=== PATIENT | male | born 1995 | race Caucasian/White ===

== ENCOUNTER 2021-08-26 03:19 | Emergency (ER) | payer OTHER ==
[~2021-08-26] VITALS: Ht 167.6 cm; Wt 134.5 kg
[2021-08-26 04:01] VITALS: BP 98/55
[2021-08-26] MEDS ORDERED: VISCOUS LIDOCAINE 2% 15 ML UDC PO STA (04:14)
[2021-08-26] MEDS ORDERED: DICYCLOMINE 10 MG/5 ML ORAL SYR PO STA (04:14)
[2021-08-26] MEDS ORDERED: MAGNESIUM/ALUMINUM HYDROXIDE/SIMETHICONE 30ML UDC PO STA (04:14)
[2021-08-26] MEDS ORDERED: ONDANSETRON 4MG ODT PO STA (04:14)
[2021-08-26 05:27] LABS: BASOPHILS % 0.4 % (0.0-2.0); EOSINOPHILS % 0.7 % (0.0-5.0); HEMATOCRIT. 43.5 % (42.0-52.0); HEMOGLOBIN. 14.6 g/dL (14.0-18.0); LYMPHOCYTES % 12.3 % (20.0-50.0); MEAN CORPUSCULAR HEMOGLOBIN 30.2 pg (28.0-32.0); MEAN CORPUSCULAR VOLUME 89.9 fL (80.0-94.0); MEAN PLATELET VOLUME 7.4 fl (7.4-10.4); MONOCYTES % 8.9 % (2.0-8.0); NEUTROPHILS % 77.7 % (40.0-76.0); PLATELET 281 x1000/uL (130-400); RED BLOOD CELL COUNT 4.83 mill/uL (4.7-6.1); RED CELL DISTRIBUTION WIDTH 13.1 % (11.6-14.6)
[2021-08-26 05:33] LABS: CHLORIDE 108 mEq/L (98-107)
[2021-08-26] MEDS ORDERED: DICYCLOMINE HCL 10MG CAPSULE PO NR (05:45)
[2021-08-26] MEDS ORDERED: OMEP40CA20 MT (06:58)
== END 2021-08-26 07:13 | disposition home or self-care (01) ==
LOC: ER 03:19
DX: K80.20 Calculus of gallbladder without cholecystitis without obstruction (principal); R74.01 Elevation of levels of liver transaminase levels
CPT/HCPCS: 36415; 76705; 80053; 85025; 99284

== ENCOUNTER 2022-07-27 06:05 | Emergency (ER) | payer OTHER ==
[~2022-07-27] VITALS: Ht 180.3 cm; Wt 143.0 kg
[~2022-07-27 06:05] MED LIST: OMEP40CA20 MT
[2022-07-27 06:15] VITALS: BP 140/89
[2022-07-27] MEDS ORDERED: KETOROLAC 30MG/ML VIAL IV STA (07:05)
[2022-07-27] MEDS ORDERED: ONDANSETRON HCL 4MG/2ML INJ IV STA (07:05)
[2022-07-27] MEDS ORDERED: SODIUM CHLORIDE 0.9% 1,000 ML IV ONE (07:15)
[2022-07-27] MEDS ORDERED: KETOROLAC 30MG/ML VIAL IV ONE (07:15)
[2022-07-27 08:34] LABS: BASOPHILS % 0.6 % (0.0-2.0); EOSINOPHILS % 0.7 % (0.0-5.0); HEMATOCRIT. 46.9 % (42.0-52.0); LYMPHOCYTES % 16.2 % (20.0-50.0); MEAN CORPUSCULAR HEMOGLOBIN 30.5 pg (28.0-32.0); MEAN CORPUSCULAR VOLUME 89.3 fL (80.0-94.0); MEAN PLATELET VOLUME 7.5 fl (7.4-10.4); NEUTROPHILS % 76.5 % (40.0-76.0); PLATELET 303 x1000/uL (130-400); RED BLOOD CELL COUNT 5.25 mill/uL (4.7-6.1); RED CELL DISTRIBUTION WIDTH 13.8 % (11.6-14.6)
[2022-07-27 08:41] LABS: CLARITY URINE CLEAR (CLEAR); COLOR URINE YELLOW (YELLOW); KETONES URINE NEGATIVE (NEGATIVE); LEUKOCYTE ESTERASE URINE NEGATIVE (NEGATIVE); NITRITE URINE NEGATIVE (NEGATIVE); OCCULT BLOOD URINE NEGATIVE (NEGATIVE); PROTEIN URINE NEGATIVE (NEGATIVE); SPECIFIC GRAVITY URINE 1.024 (1.005-1.030); UROBILINOGEN URINE 0.2 E.U./dL (0.2-1.0)
[2022-07-27 08:44] LABS: PROTHROMBIN TIME 10.6 sec (9.6-11.0)
[2022-07-27 08:48] LABS: CHLORIDE 106 mEq/L (98-107)
[2022-07-27] MEDS ORDERED: TOPUD PO (09:20)
== END 2022-07-27 09:46 | disposition home or self-care (01) ==
LOC: ER 06:05
DX: K80.20 Calculus of gallbladder without cholecystitis without obstruction (principal); K76.0 Fatty (change of) liver, not elsewhere classified
CPT/HCPCS: 36415; 76705; 80053; 81003; 83690; 85025; 85610; 96374; 99284; J1885; J7030

== ENCOUNTER 2022-08-24 20:02 | Emergency (ER) | payer OTHER ==
[~2022-08-24] VITALS: Ht 180.3 cm; Wt 137.8 kg
[~2022-08-24 20:02] MED LIST changes: +TOPUD PO
[2022-08-24 20:52] LABS: BASOPHILS % 0.3 % (0.0-2.0); EOSINOPHILS % 1.7 % (0.0-5.0); HEMOGLOBIN. 14.5 g/dL (14.0-18.0); LYMPHOCYTES % 19.2 % (20.0-50.0); MEAN CORPUSCULAR HEMOGLOBIN 30.4 pg (28.0-32.0); MEAN CORPUSCULAR VOLUME 90.1 fL (80.0-94.0); MONOCYTES % 7.2 % (2.0-8.0); NEUTROPHILS % 71.6 % (40.0-76.0); PLATELET 280 x1000/uL (130-400); RED BLOOD CELL COUNT 4.77 mill/uL (4.7-6.1); RED CELL DISTRIBUTION WIDTH 13.8 % (11.6-14.6)
[2022-08-24 21:04] LABS: CHLORIDE 103 mEq/L (98-107)
[2022-08-24] MEDS ORDERED: MAGNESIUM/ALUMINUM HYDROXIDE/SIMETHICONE 30ML UDC PO STA (21:06)
[2022-08-24] MEDS ORDERED: VISCOUS LIDOCAINE 2% 15 ML UDC PO STA (21:06)
[2022-08-24] MEDS ORDERED: ONDANSETRON HCL 4MG/2ML INJ IV STA (21:06)
[2022-08-24] MEDS ORDERED: KETOROLAC 30MG/ML VIAL IV STA (21:06)
[2022-08-24] MEDS ORDERED: FAMOTIDINE 20MG/2ML VIAL IV STA (21:06)
[2022-08-24] MEDS ORDERED: SODIUM CHLORIDE 0.9% 1,000 ML IV ONE (21:15)
[2022-08-24 21:31] LABS: CLARITY URINE CLEAR (CLEAR); COLOR URINE YELLOW (YELLOW); KETONES URINE TRACE (NEGATIVE); LEUKOCYTE ESTERASE URINE NEGATIVE (NEGATIVE); NITRITE URINE NEGATIVE (NEGATIVE); OCCULT BLOOD URINE NEGATIVE (NEGATIVE); PROTEIN URINE NEGATIVE (NEGATIVE); SPECIFIC GRAVITY URINE 1.036 (1.005-1.030)
[2022-08-24 21:33] VITALS: BP 118/74
== END 2022-08-24 23:29 | disposition home or self-care (01) ==
LOC: ER 20:02
DX: K80.50 Calculus of bile duct without cholangitis or cholecystitis without obstruction (principal)
CPT/HCPCS: 36415; 76705; 80053; 81003; 83690; 85025; 96361; 96374; 96375; 99285; J1885; J2405; J3490; J7030; Z7610

== ENCOUNTER 2022-09-09 19:23 | Emergency (ER) | payer OTHER ==
[~2022-09-09] VITALS: Ht 180.3 cm; Wt 132.5 kg
[2022-09-09 19:51] LABS: CLARITY URINE CLEAR (CLEAR); COLOR URINE YELLOW (YELLOW); KETONES URINE TRACE (NEGATIVE); LEUKOCYTE ESTERASE URINE NEGATIVE (NEGATIVE); NITRITE URINE NEGATIVE (NEGATIVE); OCCULT BLOOD URINE NEGATIVE (NEGATIVE); PH URINE >=9.0 (4.5-8.0); PROTEIN URINE TRACE (NEGATIVE); SPECIFIC GRAVITY URINE 1.025 (1.005-1.030)
[2022-09-09 19:57] LABS: BASOPHILS % 0.5 % (0.0-2.0); EOSINOPHILS % 3.5 % (0.0-5.0); HEMATOCRIT. 42.4 % (42.0-52.0); HEMOGLOBIN. 14.4 g/dL (14.0-18.0); LYMPHOCYTES % 32.7 % (20.0-50.0); MEAN CORPUSCULAR HEMOGLOBIN 30.8 pg (28.0-32.0); MEAN CORPUSCULAR VOLUME 90.3 fL (80.0-94.0); MEAN PLATELET VOLUME 7.6 fl (7.4-10.4); MONOCYTES % 9.8 % (2.0-8.0); NEUTROPHILS % 53.5 % (40.0-76.0); PLATELET 280 x1000/uL (130-400); RED BLOOD CELL COUNT 4.69 mill/uL (4.7-6.1); RED CELL DISTRIBUTION WIDTH 13.9 % (11.6-14.6)
[2022-09-09 20:06] LABS: CHLORIDE 104 mEq/L (98-107)
[2022-09-09] MEDS ORDERED: ONDANSETRON HCL 4MG/2ML INJ IV STA (21:46)
[2022-09-09] MEDS ORDERED: VISCOUS LIDOCAINE 2% 15 ML UDC PO STA (21:46)
[2022-09-09] MEDS ORDERED: MAGNESIUM/ALUMINUM HYDROXIDE/SIMETHICONE 30ML UDC PO STA (21:46)
[2022-09-09] MEDS ORDERED: KETOROLAC 30MG/ML VIAL IV STA (21:46)
[2022-09-09] MEDS ORDERED: SODIUM CHLORIDE 0.9% 1,000 ML IV ONE (22:00)
[2022-09-10] MEDS ORDERED: KETOROLAC 15MG/ML VIAL IV ONE (00:45)
[2022-09-10 00:49] VITALS: BP 121/76
[2022-09-10 12:15] LABS: *AMPHETAMINES SCREEN URINE NEGATIVE (NEGATIVE); *BARBITURATES SCREEN URINE NEGATIVE (NEGATIVE); *BENZODIAZEPINES SCREEN URINE NEGATIVE (NEGATIVE); *COCAINE SCREEN URINE NEGATIVE (NEGATIVE); CANNABINOID URINE SCREEN NEGATIVE (NEGATIVE); METHADONE URINE SCREEN NEGATIVE (NEGATIVE); OPIATES URINE SCREEN NEGATIVE (NEGATIVE); PHENCYCLIDINE URINE SCREEN NEGATIVE (NEGATIVE)
== END 2022-09-10 01:51 | disposition short-term general hospital (02) ==
LOC: ER 19:26
DX: K80.20 Calculus of gallbladder without cholecystitis without obstruction (principal); R74.01 Elevation of levels of liver transaminase levels; Z20.822 Contact with and (suspected) exposure to COVID-19
CPT/HCPCS: 36415; 76705; 80053; 80305; 80320; 81003; 83690; 85025; 87426; 93005; 96374; 96375; 96376; 99285; C9803; J1885; J2405; J7030; Z7610; G0480